=== PATIENT | female | born 1955 | race Caucasian/White ===

== ENCOUNTER 2018-09-08 11:13 | Observation (INO) | payer OTHER ==
[2018-09-08] MEDS ORDERED: GLUCAGON 1 MG/VIAL IM PRN (13:18)
[2018-09-08] MEDS ORDERED: D50W 25 GM/50 ML SYRINGE IV PRN (13:18)
[2018-09-08 13:27] VITALS: BMI 35.6
[2018-09-08] MEDS ORDERED: ENOXAPARIN 30 MG/0.3 ML SQ ONE (14:00)
[2018-09-08] MEDS ORDERED: FUROSEMIDE 40 MG/4 ML VIAL IV ONE (14:00)
[2018-09-08 14:10] LABS: Absolute Lymphocytes (CBC) 2.7 K/uL (0.7-4.9); Absolute Monocytes 0.9 K/uL (0.1-1.3); Absolute Neutrophil 6.9 K/uL (1.8-8.0); Basophils % 0.3 % (0-1.3); Eosinophils % 2.2 % (0-4.4); Hematocrit 38.9 % (36.0-45.0); Lymphocytes % 25.2 % (15.3-44.8); MPV 10.7 fL (7.6-11.3); Monocytes % 8.6 % (3.3-12.3); RBC Red Blood Cell Count 5.02 M/uL (3.86-4.86)
[2018-09-08 14:12] LABS: Urine Appearance CLEAR; Urine Bilirubin NEGATIVE (NEG); Urine Blood NEGATIVE (NEG); Urine Color YELLOW; Urine Glucose NEGATIVE (NEG); Urine Protein NEGATIVE (NEG); Urine Specific Gravity <=1.005 (1.005-1.030); Urine Urobilinogen 0.2 mg/dL (0.2-1.0); Urine pH 7.5 (5.0-7.0)
[2018-09-08 14:17] LABS: ALT/SGPT 24 U/L (12-78); AST/SGOT 17 U/L (15-37); Albumin 3.6 g/dL (3.4-5.0); Alkaline Phosphatase 88 U/L (45-117); BUN Blood Urea Nitrogen 10 mg/dL (7-18); Bicarbonate 29 mmol/L (21-32); Bilirubin Total 0.4 mg/dL (0.2-1.0); Glucose Level 82 mg/dL (74-106); NT PRO-BNP 296 pg/mL (<125); Potassium 3.7 mmol/L (3.5-5.1); Protein, Total 7.9 g/dL (6.4-8.2); Sodium Level 141 mmol/L (136-145); Troponin I < 0.02 ng/mL (0.0-0.045)
--- NOTE | 2018-09-08 14:29 | RAD REPORT ---
EXAM DESCRIPTION: Rito Single View09/08/2018 2:23 pm CLINICAL HISTORY: Shortness of breath COMPARISON: 2014 FINDINGS: The lungs appear clear of acute infiltrate. The heart is normal size IMPRESSION: No acute abnormalities displayed
[2018-09-08 14:50] LABS: Urine Microscopic Reflex NO UMIC
--- NOTE | 2018-09-08 14:54 | RAD REPORT ---
EXAM DESCRIPTION: USExtrem Venous W Compress Bil09/08/2018 2:47 pm CLINICAL HISTORY: Bilateral leg swelling COMPARISON: none FINDINGS: The common femoral, superficial femoral, popliteal and posterior tibial veins bilaterally are compressible and demonstrate augmentation. Doppler demonstrates good flow. IMPRESSION: No evidence of deep venous thrombosis involving either lower extremity.
--- NOTE | 2018-09-08 15:25 | ECHO ---
HEIGHT: 5 ft 6 in WEIGHT: 220 lb 8 oz DATE OF STUDY: 09/08/[address]: Mikel Ro MD 2-DIMENSIONAL: YES M.MODE: YES DOPPLER: YES COLOR FLOW: YES TDS: PARASTERNALS PORTABLE: DEFINITY: BUBBLE STUDY: DIAGNOSIS: CONGESTIVE HEART FAILURE. CARDIAC HISTORY: CATHERIZATION: NO SURGERY: NO PROSTHETIC VALVE: NO PACEMAKER: NO MEASUREMENTS (cm) DIASTOLIC (NORMALS) SYSTOLIC (NORMALS) IVSd 1.1 (0.6-1.2) LVIDs 2.8 (2.0-3.5) LVEF 59% LVIDd 4.1 (3.5-5.7) %FS 31% LVPWd 1.2 (0.6-1.2) Ao Diam 2.9 (2.0-3.7) 2 DIMENSIONAL ASSESSMENT: RIGHT ATRIUM: NORMAL LEFT ATRIUM: NORMAL RIGHT VENTRICLE: NORMAL LEFT VENTRICLE: NORMAL TRICUSPID VALVE: NORMAL MITRAL VALVE: NORMAL PULMONIC VALVE: NORMAL AORTIC VALVE: NORMAL PERICARDIAL EFFUSION: NONE AORTIC ROOT: NORMAL LEFT VENTRICULAR WALL MOTION: NORMAL DOPPLER/COLOR FLOW: MILD AORTIC REGURGITATION. IMPAIRED LEFT VENTRICULAR RELAXATION. COMMENTS: NORMAL TWO DIMENSIONAL ECHOCARDIOGRAM. MILD AORTIC REGURGITATION. IMPAIRED LEFT VENTRICULAR RELAXATION. TECHNOLOGIST: DU SHIRLEY
[2018-09-08] MEDS: INSULIN -REGULAR HUMAN 50 UNIT/0.5 ML ML SQ SCH ×2 (16:48→21:00)
[2018-09-08] MEDS: METFORMIN ER 500 MG TAB PO SCH (17:44)
--- NOTE | 2018-09-08 18:25 | EKG ---
Test Date: 2018-09-08 Test Time: 14:55:15 Behavioral Interventionist: YO MEASUREMENT RESULTS: Intervals: Rate: 80 WY: 168 QRSD: 92 QT: 390 QTc: 449 Tyro: P: 72 WY: 168 QRS: 55 T: 77 INTERPRETIVE STATEMENTS: Normal sinus rhythm Anteroseptal infarct, age undetermined Abnormal ECG No previous ECG available for comparison Electronically Signed On 09-08-18 18:24:52 REPORTING SPECIALIST by Jonnie Hernandez
[2018-09-08] MEDS ORDERED: ATORVASTATIN 20 MG TAB PO SCH (21:00)
[2018-09-08] MEDS ORDERED: HOME MED 1 EA UNK (Simvastatin [Simvastatin] 40 MG) PO SCH (21:00)
[2018-09-08] MEDS: CARVEDILOL 12.5 MG TAB PO SCH (21:19)
[2018-09-08] MEDS: HYDRALAZINE HCL 20 MG/ML VIAL IV PRN (21:20)
[2018-09-09] MEDS: HYDRALAZINE HCL 20 MG/ML VIAL IV PRN (04:18)
[2018-09-09 04:39] VITALS: O2SAT 93
[2018-09-09] MEDS ORDERED: ACETAMINOPHEN 500 MG TAB PO PRN (05:09)
[2018-09-09] MEDS ORDERED: INSULIN GLARGINE 100 UNITS/ML SQ SCH (06:00)
[2018-09-09] MEDS ORDERED: INSULIN GLARGINE HUM REC ANLOG 25 UNIT SQ SCH (06:00)
[2018-09-09] MEDS: INSULIN -REGULAR HUMAN 50 UNIT/0.5 ML ML SQ SCH (07:30)
[2018-09-09] MEDS ORDERED: POTASSIUM CL SA 10 MEQ TAB PO ONE (08:41)
[2018-09-09] MEDS ORDERED: FUROSEMIDE 20 MG/ 2ML VIAL IV ONE (08:41)
[2018-09-09] MEDS ORDERED: LISINOPRIL 10 MG TAB PO SCH (09:00)
[2018-09-09] MEDS ORDERED: CLOPIDOGREL 75 MG TABLET PO SCH (09:00)
[2018-09-09] MEDS: METFORMIN ER 500 MG TAB PO SCH (09:15)
[2018-09-09] MEDS: CARVEDILOL 12.5 MG TAB PO SCH (09:15)
[2018-09-09 09:17] VITALS: BP 165/79
[2018-09-09 09:49] VITALS: TEMP 97.1
--- NOTE | 2018-09-09 11:26 | HP ---
Date of Admission: 09/08/2018 Chief Complaint: Swelling of both legs. History Of Present Illness: A 63-year-old female who is known to have history of coronary artery dis ease and coronary angioplasty, was brought to the office because of swelling of the feet and fatigue. The patient clinically was diagnosed to have congestive heart failure. [facility]. The patient denied any fever, chills, or rigors. However, she was having intermittent dyspne a with exertion. Past Medical History: Positive for coronary artery disease, coronary angioplasty. The patient does not have any history of fever, chills, rigors. Other medical history includes history of type 2 diab etes, hypertension. Past Surgical History: Extensive and includes history of surgery of the neck, ankle, hernia, gallbla dder, cataract, and dental abscess. The patient had coronary angioplasty in the past. Family History: Noncontributory. Personal History: Nonsmoker. Allergies: DEMEROL. Home Medicines: Please refer to the chart. Review of Systems: No history of fever, chills, rigors. Physical Examination: General: Revealed a 63-year-old female, not in acute distress. Vital Signs: Normal. Afebrile. HEENT: Negative. Neck: Supple. JVD negative. Chest: Occasional wheezes. Heart: Regular. Abdomen: Soft. Extremities: Bilateral edema up to the knees present. Pedal pulses are difficult to feel. Laboratory Data: White count normal. Chem profile showed elevated BNP of 296. Troponin normal. Ra ndom blood sugar of 78. BUN and creatinine normal. Chest x-ray negative. Echocardiogram, no systol ic dysfunction. Assessment: 1.Presumed congestive heart failure. 2.Known coronary artery disease. 3.Deep vein thrombosis ruled out. 4.Hypertension. 5.Type 2 diabetes. Plan: Today the patient is feeling much better. She will receive additional dose of Lasix and she w ill be discharged and she will be followed up in the office. In view of her dyspnea with exertion, s he may need coronary evaluation. MISSY/TREVOR Voice ID: [id number]
== END 2018-09-09 11:47 | disposition home or self-care (01) ==
LOC: 2ND 12:28
PROVIDERS: ADMIT Internal Medicine; ATTEND Internal Medicine
DX: I11.0 Hypertensive heart disease with heart failure (principal); I50.9 Heart failure, unspecified; I25.10 Atherosclerotic heart disease of native coronary artery without angina pectoris; E11.9 Type 2 diabetes mellitus without complications; Z98.61 Coronary angioplasty status
CPT/HCPCS: 36415; 71045; 80053; 81003; 82962; 83880; 84484; 85025; 93005; 93306; 93970; G0378; J0360; J1650; J1940

== ENCOUNTER 2018-10-25 07:57 | Day surgery (SDC) | payer OTHER ==
[2018-10-24 15:55] LABS: Protime INR 1.03
[2018-10-24 16:04] LABS: Potassium 3.7 mmol/L (3.5-5.1)
[2018-10-24 16:11] LABS: Absolute Lymphocytes (CBC) 2.9 K/uL (0.7-4.9); Absolute Monocytes 0.7 K/uL (0.1-1.3); Absolute Neutrophil 5.2 K/uL (1.8-8.0); Basophils % 0.5 % (0-1.3); Eosinophils % 2.8 % (0-4.4); Hematocrit 37.8 % (36.0-45.0); MPV 10.6 fL (7.6-11.3); Monocytes % 8.1 % (3.3-12.3); RBC Red Blood Cell Count 4.94 M/uL (3.86-4.86)
[2018-10-25] MEDS ORDERED: NA CHLORIDE 0.9% 500 ML ONE (08:40)
[2018-10-25] MEDS ORDERED: ONDANSETRON 4 MG/2 ML VIAL ONE (11:28)
[2018-10-25] MEDS ORDERED: NITROGLYCERIN 100 MCG/ML SYR (for cath lab use only) IV ONE (11:28)
[2018-10-25] MEDS ORDERED: HEPARIN 5000 UNIT/ML 1 ML VIAL ONE (11:28)
[2018-10-25] MEDS ORDERED: MIDAZOLAM HCL 2 MG/2 ML INJ ONE (11:28)
[2018-10-25] MEDS ORDERED: HEPA 1000U/500MLS 2,000 UNIT/1,000 ML BAG IV ONE (11:28)
[2018-10-25] MEDS ORDERED: NICARDIPINE HCL 25 MG/10 ML IV ONE (11:28)
[2018-10-25] MEDS ORDERED: FENTANYL CITR 100 MCG/2 ML ONE (11:28)
[2018-10-25] MEDS ORDERED: ATROPINE SULF 1 MG/10 ML SYR IV ONE (11:28)
[2018-10-25] MEDS ORDERED: NA CHLORIDE 0.9% 0 ML ONE (11:29)
[2018-10-25] MEDS ORDERED: HYDRALAZINE HCL 20 MG/ML VIAL ONE (12:04)
[2018-10-25 14:17] VITALS: O2SAT 94
[2018-10-25 14:54] VITALS: BP 122/51; TEMP 99
--- NOTE | 2018-10-25 22:49 | OP ---
Surgeon: Jonnie Hernandez MD Procedures: Left heart catheterization with coronary left ventricular angiography. Procedure Findings: The patient has an LAD stent that is widely patent. It is in the proximal LAD. The stent crosses the first diagonal. The first diagonal has a 70% stenosis at its origin. It is a small vessel and would not be amenable to intervention. Just distal to the stent is a 40% to 50% st enosis that is smooth. There is normal flow all the way to the LAD. She has a normal right coronary artery, normal circumflex artery. Her left main is short. The ejection fraction is normal, but the re is apical hypokinesis, and the plan is to continue medical therapy and attempt to have her blood p ressure get under better control by adding amlodipine to her present regimen. Procedure In Detail: The patient had an abnormal stress test, history of stents, and multiple risk f actors. She was brought to the cardiac catheterization lab in a fasting state, sedated with Versed a nd fentanyl, prepared and draped in the usual sterile fashion. We used the right radial artery. We anesthetized the tissues around the right radial artery with 1% lidocaine. We entered the artery wit h a 21-gauge needle, cannulated the artery with a 0.715-gukz-bwpoarng guidewire. We then used this t o place a sheath in the right radial artery, a Terumo 6-Bengali radial sheath. As soon as the sheath was in place, it was flushed; and a radial cocktail was given consisting of nicardipine, heparin, and nitroglycerin. We guided a TIG catheter into the ascending aorta using fluoroscopy and a Route4Me Gli dewire with a short-radius J-tip. We used the same catheter to angiogram right and left coronary art eries and the left ventricle. At the end of the procedure, the catheter was straightened out with th e J-wire withdrawn; and the sheath was flushed, removed, and the arteriotomy was closed using a SUNIL [place] nd. Estimated Blood Loss: 5 cc. Inker Machine: Kota Hernández. Complications: None. MARILYNN/TREVOR Voice ID: [id number] Report ID: [id number]
== END 2018-10-25 16:20 | disposition home health service (06) ==
LOC: CCL 07:57
PROVIDERS: ATTEND Internal Medicine
PROC: 4A023N7 Measurement of Cardiac Sampling and Pressure, Left Heart, Percutaneous Approach (ICD-10-PCS; principal; 2018-10-25)
PROC: B201YZZ Plain Radiography of Multiple Coronary Arteries using Other Contrast (ICD-10-PCS; 2018-10-25)
PROC: B205YZZ Plain Radiography of Left Heart using Other Contrast (ICD-10-PCS; 2018-10-25)
DX: R94.39 Abnormal result of other cardiovascular function study (principal); I25.10 Atherosclerotic heart disease of native coronary artery without angina pectoris; I11.0 Hypertensive heart disease with heart failure; I50.32 Chronic diastolic (congestive) heart failure; E78.2 Mixed hyperlipidemia; Z95.5 Presence of coronary angioplasty implant and graft; Z88.6 Allergy status to analgesic agent; Z91.040 Latex allergy status; Z87.891 Personal history of nicotine dependence
CPT/HCPCS: 36415; 80048; 82962; 85025; 85610; 85730; 93458; C1893; J0360; J0583; J1644; J2250; J2405; J3010

== ENCOUNTER 2021-05-10 05:44 | Inpatient (IN) | payer BC, OTHER ==
--- OUTSIDE RECORDS SUMMARY | 2021-05-10 05:46 | XMS REPORT | Continuity of Care Document ---
:1955 Author Organization [facility] t Address [address] [place] [address] Dr. Bennett [address] [place] [id number] Care Team Providers Name Role Phone Unavailable Unavailable Unavailable Problems This patient has no known problems. Allergies, Adverse Reactions, Alerts This patient has no known allergies or adverse reactions. Medications This patient has no known medications. Procedures This patient has no known procedures. Results This patient has no known results.
[2021-05-10 07:08] LABS: Absolute Lymphocytes (CBC) 1.6 K/uL (0.7-4.9); Basophils % 0.8 % (0-1.3); Hematocrit 38.3 % (36.0-45.0); Lymphocytes % 16.4 % (15.3-44.8); RBC Red Blood Cell Count 4.74 M/uL (3.86-4.86)
[2021-05-10 07:09] LABS: Protime INR 1.01
[2021-05-10] MEDS ORDERED: ASPIRIN EC 81 MG TAB PO ONE (07:14)
[2021-05-10 07:17] LABS: ALT/SGPT 18 U/L (12-78); AST/SGOT 20 U/L (15-37); Albumin 3.5 g/dL (3.4-5.0); Alkaline Phosphatase 78 U/L (45-117); BUN Blood Urea Nitrogen 11 mg/dL (7-18); Bicarbonate 29 mmol/L (21-32); Bilirubin Direct 0.1 mg/dL (0-0.2); Bilirubin Total 0.5 mg/dL (0.2-1.0); Glucose Level 223 mg/dL (74-106); NT PRO-BNP 449 pg/mL (<125); Protein, Total 7.5 g/dL (6.4-8.2); Sodium Level 139 mmol/L (136-145); Troponin (Emerg Dept Use Only) < 0.02 ng/mL (0.0-0.045)
--- NOTE | 2021-05-10 08:49 | RAD REPORT ---
EXAM DESCRIPTION: RAD - Chest Single View - 05/10/2021 7:41 am CLINICAL HISTORY: CHEST PAIN Chest pain. COMPARISON: Chest Single View dated 09/08/2018; CHEST PA AND LAT 2 VIEW dated 09/20/2014 FINDINGS: Portable technique limits examination quality. Mild interstitial pulmonary edema suspected. The heart is normal in size. No displaced fractures.
[2021-05-10] MEDS ORDERED: FUROSEMIDE 40 MG/4 ML VIAL ONE (10:58)
--- NOTE | 2021-05-10 11:15 | ER ---
Nurse's Notes [facility] Name: Shantal Carrasquillo Age: 66 yrs Sex: Female : 1955 Arrival Date: 05/10/2021 Time: 05:46 Bed 7 Private MD: Diagnosis: Dyspnea-on exertion;Chest pain, unspecified Presentation: 05/10 05:59 Chief complaint: Patient states: difficulty breathing off and on for a week, is em scheduled for a cath. on Apr, with Dr. Wood, was told to come to the ED if symptoms get worse, chest tightness 3/10, also reports nausea. Coronavirus screen: Vaccine status: Patient reports receiving the 2nd dose of the covid vaccine. Ebola Screen: Patient negative for fever greater than or equal to 101.5 degrees Fahrenheit, and additional compatible Ebola Virus Disease symptoms Patient denies exposure to infectious person. Patient denies travel to an Ebola-affected area in the 21 days before illness onset. No symptoms or risks identified at this time. Initial Sepsis Screen: Does the patient meet any 2 criteria? No. Patient's initial sepsis screen is negative. Does the patient have a suspected source of infection? No. Patient's initial sepsis screen is negative. Risk Assessment: Do you want to hurt yourself or someone else? Patient reports no desire to harm self or others. Onset of symptoms was May 10, 2021. 05:59 Method Of Arrival: Wheelchair em 05:59 Acuity: PAYAM 3 em 06:36 Note Pt c/o SOB on exertion, Report having stent placement scheduled "later this bc5 month". Denies fever, CP at this time. A\\T\\O x 3, RR is even and unlabored, speaking in clear and complete sentences at this time. Triage Assessment: 06:54 General: Appears in no apparent distress. comfortable. General: Behavior is calm, bc5 cooperative. Pain: Complains of pain in chest. Respiratory: Reports shortness of breath on exertion Onset: The symptoms/episode began/occurred gradually, the patient has mild shortness of breath. Historical: - Allergies: 06:05 Morphine; em 06:05 Latex, Natural Rubber; em 06:05 Demerol; em - PMHx: 06:05 Cataract; em - PSHx: 06:05 Appendectomy; section; Coronary Angioplasty; Tonsillectomy; Cholecystectomy; em heart stents; R ankle; - Immunization history:: Adult Immunizations up to date, Client reports receiving the 2nd dose of the Covid vaccine. - Social history:: Smoking status: Patient denies any tobacco usage or history of. Screenin:00 Abuse screen: Denies threats or abuse. Denies injuries from another. Nutritional jl7 screening: No deficits noted. Tuberculosis screening: No symptoms or risk factors identified. Fall Risk IV access (20 points). Total Manrique Fall Scale indicates No Risk (0-24 pts). Assessment: 12:20 Reassessment: Patient appears in no apparent distress at this time. No changes from tw2 previously documented assessment. Patient and/or family updated on plan of care and expected duration. Pain level reassessed. Patient is alert, oriented x 3, equal unlabored respirations, skin warm/dry/pink. 12:25 Reassessment: Dr. Hudson at bedside at this time. tw2 13:30 Reassessment: Patient appears in no apparent distress at this time. No changes from tw2 previously documented assessment. Patient and/or family updated on plan of care and expected duration. Pain level reassessed. Patient is alert, oriented x 3, equal unlabored respirations, skin warm/dry/pink. pt given lunch tray at this time. 16:28 Reassessment: Patient appears in no apparent distress at this time. No changes from tw2 previously documented assessment. Patient and/or family updated on plan of care and expected duration. Pain level reassessed. Patient is alert, oriented x 3, equal unlabored respirations, skin warm/dry/pink. Vital Signs: 05:59 BP 184 / 81; Pulse 78; Resp 18; Temp 97.9; Pulse Ox 98% on R/A; Weight 94.8 kg; Height em 5 ft. 6 in. (167.64 cm); Pain 3/10; 10:42 BP 174 / 66; Pulse 75; Resp 15; Pulse Ox 98% on R/A; jl7 12:25 BP 166 / 89; Pulse 78; Resp 16; Pulse Ox 95% on R/A; tw2 13:30 BP 162 / 70; Pulse 92; Resp 17; Pulse Ox 97% on R/A; tw2 05:59 Body Mass Index 33.73 (94.80 kg, 167.64 cm) em ED Course: 05:46 Patient arrived in ED. wm 06:05 Triage completed. em 06:05 Arm band placed on. em 06:22 Marcos Garcia NP is PHCP. pm1 06:22 Luigi Jim MD is Attending Physician. pm1 06:52 Basic Metabolic Panel Sent. bc5 06:52 CBC with Diff Sent. bc5 06:52 LFT's Sent. bc5 06:52 Magnesium Sent. bc5 06:52 NT PRO-BNP Sent. bc5 06:52 PT-INR Sent. bc5 06:53 Troponin (emerg Dept Use Only) Sent. bc5 06:54 Inserted saline lock: 20 gauge in left antecubital area, using aseptic technique. bc5 07:00 Patient has correct armband on for positive identification. Placed in gown. Bed in low jl7 position. Call light in reach. Side rails up X 1. quality assurance monitor final on. Pulse ox on. NIBP on. Warm blanket given. 07:00 Initial lab(s) drawn, by ED staff, sent to lab. EKG done, by ED staff, reviewed by [facility] Marcos Garcia NP. 07:10 Gama Serrano, RN is Primary Nurse. ch5 07:41 XRAY Chest (1 view) In Process Unspecified. EDMS 08:29 Attending Physician role handed off by Luigi Jim MD rn 08:29 Yossi Moreno MD is Attending Physician. rn 11:14 Gerard Castillo MD is Hospitalizing Provider. pm1 15:43 Comprehensive Metabolic Panel Sent. ch5 15:43 Comprehensive Metabolic Panel Sent. ch5 15:43 Lipid Profile Sent. ch5 15:44 Thyroid Stimulating Hormone Sent. ch5 15:44 Comprehensive Metabolic Panel Sent. ch5 15:44 Comprehensive Metabolic Panel Sent. ch5 15:44 CBC with Automated Diff Sent. ch5 15:44 CBC with Automated Diff Sent. ch5 15:44 CBC with Automated Diff Sent. ch5 15:44 CBC with Automated Diff Sent. ch5 15:44 LAB Add On Sent. ch5 16:28 No provider procedures requiring assistance completed. Patient admitted, IV remains in tw2 place. Administered Medications: 06:55 Drug: Aspirin Chewable Tablet 324 mg Route: PO; wg 10:41 Drug: Lasix (furosemide) 40 mg Route: IVP; Site: right antecubital; jl7 Outcome: 11:14 Decision to Hospitalize by Provider. pm1 16:28 Admitted to Med/surg accompanied by tech, via wheelchair, with chart. tw2 16:28 Condition: stable 16:28 Instructed on the need for admit. 16:28 Patient left the ED. tw2 Signatures: Dispatcher [employer] EDNick Hwang, RN RN Yossi Meyer MD MD rn Marinas, Patrick, STANISLAW OAK TANNER pm1 Saskia Ellsworth RN RN tw2 Olga Denise RN RN jl7 Bethany Nugent Christopher, RN RN ch5 Ralph Schaffer RN Rena Lincoln RN RN bc5
--- NOTE | 2021-05-10 11:15 | EDPHYS ---
Physician Documentation [facility] Name: Shantal Carrasquillo Age: 66 yrs Sex: Female : 1955 Arrival Date: 05/10/2021 Time: 05:46 Bed 7 Private MD: ED Physician Yossi Moreno HPI: 05/10 06:37 This 66 yrs old Female presents to ER via Wheelchair with complaints of pm1 Breathing Difficulty. 06:37 The patient has shortness of breath with light activity. Onset: The symptoms/episode pm1 began/occurred 3 day(s) ago. The patient's shortness of breath is aggravated by nothing, is alleviated by nothing. 06:37 Associated signs and symptoms: Pertinent positives: chest pain, nausea, Pertinent pm1 negatives: non-productive cough, productive cough, fever, vomiting, Diarrhea. Severity of symptoms: in the emergency department the symptoms are worse. The patient has not experienced similar symptoms in the past. The patient has been recently seen by a physician: with similar presenting complaints, Patient recently seen by Dr. Deng her talent director for the same complaint and the plan for management of her symptom is cardiac cath scheduled on May 21. However she was instructed if her symptoms worsen to report to the ER for further evaluation and treatment. Historical: - Allergies: 06:05 Morphine; em 06:05 Latex, Natural Rubber; em 06:05 Demerol; em - PMHx: 06:05 Cataract; em - PSHx: 06:05 Appendectomy; section; Coronary Angioplasty; Tonsillectomy; Cholecystectomy; em heart stents; R ankle; - Immunization history:: Adult Immunizations up to date, Client reports receiving the 2nd dose of the Covid vaccine. - Social history:: Smoking status: Patient denies any tobacco usage or history of. ROS: 06:37 Constitutional: Negative for fever, chills, and weight loss. pm1 06:37 Abdomen/GI: Negative for abdominal pain, nausea, vomiting, diarrhea, and constipation, Back: Negative for injury and pain, MS/Extremity: Negative for injury and deformity, Skin: Negative for injury, rash, and discoloration, Neuro: Negative for headache, weakness, numbness, tingling, and seizure. 06:37 Cardiovascular: Positive for chest pain, edema, Negative for edema, palpitations. 06:37 Respiratory: Positive for shortness of breath, Negative for cough. 06:37 All other systems are negative. Exam: 06:37 Constitutional: This is a well developed, well nourished patient who is awake, alert, pm1 and in no acute distress. Head/Face: Normocephalic, atraumatic. 06:37 Back: No spinal tenderness. No costovertebral tenderness. Full range of motion. Skin: Warm, dry with normal turgor. Normal color with no rashes, no lesions, and no evidence of cellulitis. MS/ Extremity: Pulses equal, no cyanosis. Neurovascular intact. Full, normal range of motion. 06:37 Eyes: Exam is negative for acute changes, Periorbital structures: appear normal, Extraocular movements: intact throughout, Sclera: no acute changes, icterus, is not appreciated. 06:37 ENT: Mouth: Lips: normal, moist, Oral mucosa: normal, pink and intact, moist. 06:37 Cardiovascular: Rate: normal, Rhythm: regular, Pulses: no pulse deficits are appreciated, Edema: pedal edema, 2+. 06:37 Respiratory: Exam negative for acute changes, the patient does not display signs of respiratory distress, Respirations: normal, Breath sounds: are clear throughout. 06:37 Abdomen/GI: Inspection: abdomen appears normal, Palpation: abdomen is soft and non-tender, in all quadrants. 06:37 Neuro: Exam negative for acute changes, Orientation: is normal, Mentation: is normal, Motor: moves all fours. Vital Signs: 05:59 BP 184 / 81; Pulse 78; Resp 18; Temp 97.9; Pulse Ox 98% on R/A; Weight 94.8 kg; Height em 5 ft. 6 in. (167.64 cm); Pain 3/10; 10:42 BP 174 / 66; Pulse 75; Resp 15; Pulse Ox 98% on R/A; jl7 12:25 BP 166 / 89; Pulse 78; Resp 16; Pulse Ox 95% on R/A; tw2 13:30 BP 162 / 70; Pulse 92; Resp 17; Pulse Ox 97% on R/A; tw2 05:59 Body Mass Index 33.73 (94.80 kg, 167.64 cm) em MDM: 06:38 Patient medically screened. pm1 10:15 Data reviewed: vital signs. Data interpreted: Pulse oximetry: on room air is 98 %. pm1 Interpretation: normal. 11:11 Counseling: I had a detailed discussion with the patient and/or guardian regarding: the pm1 historical points, exam findings, and any diagnostic results supporting the discharge/admit diagnosis, lab results, radiology results, the need for further work-up and treatment in the hospital, to return to the emergency department if symptoms worsen or persist or if there are any questions or concerns that arise at home. 05/10 06:24 Order name: Basic Metabolic Panel; Complete Time: 07:19 pm05/10 06:24 Order name: CBC with Diff; Complete Time: 07:14 pm05/10 06:24 Order name: LFT's; Complete Time: 07:19 pm05/10 06:24 Order name: Magnesium; Complete Time: 07:19 pm05/10 06:24 Order name: NT PRO-BNP; Complete Time: 07:19 pm05/10 06:24 Order name: PT-INR; Complete Time: 07:14 pm05/10 06:24 Order name: Troponin (emerg Dept Use Only); Complete Time: 07:19 pm1 05/10 12:58 Order name: Comprehensive Metabolic Panel [facility] 05/10 12:58 Order name: Comprehensive Metabolic Panel [facility] 05/10 12:58 Order name: Lipid Profile [facility] 05/10 12:58 Order name: Thyroid Stimulating Hormone [facility] 05/10 12:58 Order name: Comprehensive Metabolic Panel [facility] 05/10 12:58 Order name: Comprehensive Metabolic Panel [facility] 05/10 06:24 Order name: XRAY Chest (1 view); Complete Time: 08:57 pm1 05/10 06:24 Order name: EKG; Complete Time: 06:24 pm1 05/10 06:24 Order name: Cardiac monitoring; Complete Time: 06:34 pm05/10 06:24 Order name: EKG - Nurse/Tech; Complete Time: 06:34 pm05/10 06:24 Order name: IV Saline Lock; Complete Time: 06:53 pm1 05/10 12:05 Order name: Diet Ada 1800 Power; Complete Time: 12:05 tw2 05/10 12:59 Order name: CONS Physician Consult; Complete Time: 15:44 [facility] 05/10 12:59 Order name: Hemoglobin A1c; Complete Time: 15:46 EDMS 05/10 12:59 Order name: CBC with Automated Diff EDMS 05/10 12:59 Order name: CBC with Automated Diff EDMS 05/10 12:59 Order name: CBC with Automated Diff EDMS 05/10 12:59 Order name: CBC with Automated Diff EDMS 05/10 13:35 Order name: SARS-COV-2 RT PCR; Complete Time: 13:41 EDMS 05/10 14:05 Order name: LAB Add On eb 05/10 06:24 Order name: Labs collected and sent; Complete Time: 06:53 pm1 05/10 06:24 Order name: O2 Per Protocol; Complete Time: 06:35 pm1 05/10 06:24 Order name: O2 Sat Monitoring; Complete Time: 06:34 pm1 Administered Medications: 06:55 Drug: Aspirin Chewable Tablet 324 mg Route: PO; wg 10:41 Drug: Lasix (furosemide) 40 mg Route: IVP; Site: right antecubital; jl7 Disposition: 17:00 Co-signature as Attending Physician, Yossi Moreno MD. rn 17:00 I agree with the assessment and plan of care. Attestation: The patient's history, exam rn findings, diagnostics, and a summary of any interventions or procedures was reviewed in detail with Marcos Garcia BUSINESS OPERATIONS MANAGER. Disposition Summary: 05/10/21 11:14 Hospitalization Ordered Hospitalization Status: Observation pm1 Provider: Gerard Castillo pm1 Location: Telemetry/MedSurg (observation) pm1 Condition: Stable pm1 Problem: new pm1 Symptoms: have improved pm1 Bed/Room Type: Standard pm1 Room Assignment: 207(05/10/21 15:19) Diagnosis - Dyspnea - on exertion pm1 - Chest pain, unspecified pm1 Forms: - Medication Reconciliation Form pm1 - SBAR form pm1 Signatures: Dispatcher [employer] Willow Garland RN RN dw Munoz, Edgar, RN RN em Nieto, Roman, MD MD rn Marinas, Patrick, NP BUSINESS OPERATIONS MANAGER pm1 Olga Denise RN RN jl7 Gamba, Liam, RN wg Corrections: (The following items were deleted from the chart) 12:42 12:06 CORONAVIRUS+MR.LAB.BRZ ordered. EDMS EDMS 15:19 11:14 pm1 dw
--- NOTE | 2021-05-10 12:53 | P.HP ---
Certification for Inpatient Patient admitted to: Inpatient With expected LOS: >2 Midnights Patient will require the following post-hospital care: None Practitioner: I am a practitioner with admitting privileges, knowledge of patient current condition, hospital course, and medical plan of care. Services: Services provided to patient in accordance with Admission requirements found in Title 42 Section 412.3 of the Code of Federal Regulations Patient History Date of Service: 05/10/21 Primary Care Provider: Katelyn Reason for admission: unstable angina History of Present Illness: Patient of Dr. Zepeda and Dr. Crouch. She has a history of htn Dm2 and cad with a stent. The patient has been having increasing exercise intolerance and increasing sob. She works in [employer] and is no longer able to walk across the floor. She was having worsening of this. The patient was referred to Dr. Crouch and has recently had an outpatient workup. With echo and stress test. Unfortunately we do not have those records however Dr. 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 She was to have a cath on the of this month. However as her sob was getting worse she decided to come to the ER. Allergies latex Allergy (Verified 10/24/18 15:16) Rash meperidine HCl [From Demerol] Allergy (Verified 10/24/18 15:16) Hives/Rash Home Medications: Carvedilol [Coreg] 12.5 mg PO BID 09/08/18 Clopidogrel Bisulfate [Plavix] 75 mg PO DAILY 09/08/18 Glimepiride 4 mg PO DAILY 09/08/18 Insulin Glargine,Hum.rec.anlog [Basaglar Kwikpen U-100] 25 unit SQ [id number] 09/08/18 Metformin ER [Glucophage ER] 1,000 mg PO BID 09/08/18 Simvastatin 40 mg PO BEDTIME 09/08/18 lisinopriL [Lisinopril] 10 mg PO DAILY 09/08/18 - Past Medical/Surgical History Diabetic: Yes -: DM -: HTN -: stent placement -: rt ankle sx -: neck sx x2 -: hernia repair -: cholecystectomy -: bilat cataract sx -: perirectal abcess sx - Social History Alcohol use: No CD- Drugs: No Caffeine use: No Review of Systems 10-point ROS is otherwise unremarkable Respiratory: Shortness of Breath Cardiovascular: Chest Pain (tightness. ) Physical Examination - Physical Exam General: Alert, In no apparent distress HEENT: Atraumatic, PERRLA, Mucous membr. moist/pink, EOMI, Sclerae nonicteric Neck: Supple, 2+ carotid pulse no bruit, No LAD, Without JVD or thyroid abnormality Respiratory: Clear to auscultation bilaterally, Normal air movement Cardiovascular: Regular rate/rhythm, Normal S1 S2, Edema (1+) Gastrointestinal: Normal bowel sounds, No tenderness Musculoskeletal: No tenderness Integumentary: No rashes Neurological: Normal gait, Normal speech, Normal strength at 5/5 x4 extr, Normal tone, Normal affect Lymphatics: No axilla or inguinal lymphadenopathy - Studies Laboratory Data (last 24 hrs) 05/10/21 06:50: PT 11.6, INR 1.01 05/10/21 06:50: WBC 10.00, Hgb 12.6, Hct 38.3, Plt Count 181 05/10/21 06:50: Sodium 139, Potassium 4.0, BUN 11, Creatinine 0.59, Glucose 223 H, Magnesium 2.0, Total Bilirubin 0.5, AST 20, ALT 18, Alkaline Phosphatase 78 Assessment and Plan - Problems (Diagnosis) (1) CHF (congestive heart failure) Onset Date: 09/11/18 Current Visit: Yes Status: Acute Plan: will admit the patient to the hospital. Consult to Dr. Crouch. Will give her a small amount of lasix. She is fluid overloaded and has a very good creatine. She should be able to tolerate this. Qualifiers: Heart failure type: unspecified Heart failure chronicity: acute Qualified Code(s): I50.9 - Heart failure, unspecified (2) HTN (hypertension) Current Visit: Yes Status: Acute Plan: Will restart home medications. adjust as needed. Qualifiers: Hypertension type: primary hypertension Qualified Code(s): I10 - Essential (primary) hypertension (3) DM2 (diabetes mellitus, type 2) Current Visit: Yes Status: Acute Plan: restart home medications Will keep her on a insulin sliding scale. 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
[2021-05-10] MEDS ORDERED: ONDANSETRON 4 MG/2 ML VIAL IV PRN (12:55)
[2021-05-10] MEDS ORDERED: GLUCAGON 1 MG/VIAL IM PRN (12:56)
[2021-05-10] MEDS ORDERED: D50W 25 GM/50 ML SYRINGE IV PRN (12:56)
--- NOTE | 2021-05-10 16:02 | CON ---
Date of Consultation: 05/10/2021 Reason For Consultation: Heart failure. History Of Present Illness: A 66-year-old female with history of coronary artery disease, diabetes, hypertension, status post stent placement in the past, does come in with worsening shortness of breat h on exertion, minimal exertion is bringing up symptoms along with chest tightness. It is becoming m ore frequent. Denies having any nausea, vomiting, diarrhea, or diaphoresis. Past Medical History: Diabetes, hypertension, coronary artery disease. Medications: Refer reconciliation sheet for detailed list. Allergies: LATEX AND MEPERIDINE. Social History: Does not smoke or drink. Does not use any drugs. Family History: No mature coronary disease or cancer. Review of Systems: All systems reviewed were and they were negative except as mentioned in the HPI. Physical Examination: Vital Signs: Reviewed. Head and Neck: Pupils are equal, reactive to light. Intact eye movements. No JVD. No cervical lym phadenopathy. Neck is supple. Thyroid is not enlarged. Lungs: Clear to auscultation bilaterally. No rhonchi, rales, or crackles. No accessory muscle use. Heart: Regular rate and rhythm. No extra sounds. Abdomen: Soft, nontender. Bowel sounds positive. No organomegaly. No masses or hernia. No rigidi ty or rebound. Extremities: No edema, clubbing, or cyanosis. Intact pulses. Skin: No rashes. Neurologic: Alert, awake, and oriented x3. No acute focal deficits appreciated. Investigations: Troponin less than 0.02. BNP is 449, creatinine 0.59. The chest x-ray showed mild pulmonary edema. Assessment And Recommendation: Acute congestive heart failure with history of coronary artery diseas e and exertional chest pain and shortness of breath, likely unstable angina. Admit. Start her on Lo venox and baby aspirin. Also, IV Lasix 40 mg IV q.12 hours, and we will plan to do a coronary angiog stephie on her once her fluid status is balanced. SR/MODL Voice ID: [id number] Report ID: [id number]
[2021-05-10] MEDS: ENOXAPARIN 40 MG/0.4 ML SQ SCH (17:00)
[2021-05-10] MEDS: INSULIN -REGULAR HUMAN 50 UNIT/0.5 ML ML SQ SCH ×2 (17:21→21:04)
[2021-05-10] MEDS: METFORMIN ER 500 MG TAB PO SCH (17:21)
[2021-05-10] MEDS: FUROSEMIDE 40 MG/4 ML VIAL IV SCH (17:22)
[2021-05-10] MEDS ORDERED: HYDRALAZINE HCL 20 MG/ML VIAL IV PRN (20:19)
[2021-05-10] MEDS ORDERED: HOME MED 1 EA UNK (Simvastatin [Simvastatin] 40 MG Tablet) PO SCH (21:00)
[2021-05-10] MEDS: ATORVASTATIN 10 MG TAB PO SCH (21:03)
[2021-05-10] MEDS: carvediloL 12.5 MG TAB PO SCH (21:03)
[2021-05-11] MEDS ORDERED: HOME MED 1 EA UNK (Insulin Glargine,Hum.Rec.Anlog [Basaglar Kwikpen U-100] 100 UNIT/ML Ins SQ SCH (06:00)
[2021-05-11] MEDS: INSULIN GLARGINE 100 UNITS/ML SQ SCH ×2 (06:00→07:25)
[2021-05-11 06:29] LABS: Basophils % 0.4 % (0-1.3); Hematocrit 37.5 % (36.0-45.0); Lymphocytes % 19.2 % (15.3-44.8); MPV 10.3 fL (7.6-11.3); RBC Red Blood Cell Count 4.63 M/uL (3.86-4.86)
[2021-05-11 06:46] LABS: ALT/SGPT 17 U/L (12-78); AST/SGOT 14 U/L (15-37); Alkaline Phosphatase 70 U/L (45-117); BUN Blood Urea Nitrogen 15 mg/dL (7-18); Bicarbonate 29 mmol/L (21-32); Bilirubin Total 0.3 mg/dL (0.2-1.0); Glucose Level 128 mg/dL (74-106); Potassium 3.4 mmol/L (3.5-5.1); Sodium Level 139 mmol/L (136-145)
[2021-05-11 06:47] LABS: Albumin 3.2 g/dL (3.4-5.0); HDL Cholesterol 54 mg/dL (40-60); LDL Cholesterol, Calculated 83 (<130); Protein, Total 6.9 g/dL (6.4-8.2)
[2021-05-11] MEDS: INSULIN -REGULAR HUMAN 50 UNIT/0.5 ML ML SQ SCH ×4 (07:30→20:05)
[2021-05-11] MEDS: METFORMIN ER 500 MG TAB PO SCH ×2 (07:44→16:37)
[2021-05-11] MEDS: lisinopriL 10 MG TAB PO SCH (07:45)
[2021-05-11] MEDS: ASPIRIN EC 81 MG TAB PO SCH (07:45)
[2021-05-11] MEDS: carvediloL 12.5 MG TAB PO SCH ×2 (07:46→20:05)
[2021-05-11] MEDS: FUROSEMIDE 40 MG/4 ML VIAL IV SCH ×2 (07:46→16:38)
[2021-05-11] MEDS: CLOPIDOGREL 75 MG TABLET PO SCH (07:46)
[2021-05-11] MEDS ORDERED: FUROSEMIDE 40 MG/4 ML VIAL IV SCH (09:00)
[2021-05-11] MEDS ORDERED: FUROSEMIDE 20 MG TABLET PO SCH (09:00)
--- NOTE | 2021-05-11 13:25 | P.PN ---
Subjective Date of Service: 05/11/21 Primary Care Provider: Katelyn Chief Complaint: unstable angina Subjective: Improving Review of Systems 10-point ROS is otherwise unremarkable Physical Examination - Vital Signs Temperature: 98.4 F Blood Pressure: 137/56 Pulse: 82 Respirations: 15 Pulse Ox (%): 96 - Physical Exam General: Alert, In no apparent distress HEENT: Atraumatic, PERRLA, EOMI Neck: Supple, JVD not distended Respiratory: Clear to auscultation bilaterally, Normal air movement Cardiovascular: Regular rate/rhythm, Normal S1 S2 Gastrointestinal: Normal bowel sounds, No tenderness Musculoskeletal: No tenderness Integumentary: No rashes Neurological: Normal speech, Normal tone, Normal affect Lymphatics: No axilla or inguinal lymphadenopathy Assessment & Plan - Problems (Diagnosis) (1) CHF (congestive heart failure) Onset Date: 09/11/18 Current Visit: Yes Status: Acute Plan: will admit the patient to the hospital. Consult to Dr. Crouch. Will give her a small amount of lasix. She is fluid overloaded and has a very good creatine. She should be able to tolerate this. 05/11 Patient is improving with diuresis. Awaiting cardiac cath Qualifiers: Heart failure type: unspecified Heart failure chronicity: acute Qualified Code(s): I50.9 - Heart failure, unspecified (2) HTN (hypertension) Current Visit: Yes Status: Acute Plan: Will restart home medications. adjust as needed. Qualifiers: Hypertension type: primary hypertension Qualified Code(s): I10 - Essential (primary) hypertension (3) DM2 (diabetes mellitus, type 2) Current Visit: Yes Status: Acute Plan: restart home medications Will keep her on a insulin sliding scale. 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
[2021-05-11 13:38] VITALS: BMI 31.8
[2021-05-11] MEDS: ENOXAPARIN 40 MG/0.4 ML SQ SCH (16:37)
[2021-05-11] MEDS: ATORVASTATIN 10 MG TAB PO SCH (20:05)
[2021-05-12] MEDS: INSULIN GLARGINE 100 UNITS/ML SQ SCH (06:00)
[2021-05-12] MEDS: CLOPIDOGREL 75 MG TABLET PO SCH (07:02)
[2021-05-12] MEDS: lisinopriL 10 MG TAB PO SCH (07:02)
[2021-05-12] MEDS: ASPIRIN EC 81 MG TAB PO SCH (07:03)
[2021-05-12] MEDS: carvediloL 12.5 MG TAB PO SCH ×2 (07:03→20:09)
[2021-05-12 07:16] LABS: Absolute Lymphocytes (CBC) 2.4 K/uL (0.7-4.9); Basophils % 0.5 % (0-1.3); Lymphocytes % 24.4 % (15.3-44.8); MPV 10.1 fL (7.6-11.3); RBC Red Blood Cell Count 4.68 M/uL (3.86-4.86)
[2021-05-12 07:30] LABS: ALT/SGPT 17 U/L (12-78); AST/SGOT 20 U/L (15-37); Albumin 3.2 g/dL (3.4-5.0); Alkaline Phosphatase 67 U/L (45-117); BUN Blood Urea Nitrogen 21 mg/dL (7-18); Bicarbonate 30 mmol/L (21-32); Bilirubin Total 0.4 mg/dL (0.2-1.0); Glucose Level 135 mg/dL (74-106); Potassium 3.6 mmol/L (3.5-5.1); Protein, Total 7.1 g/dL (6.4-8.2); Sodium Level 137 mmol/L (136-145)
[2021-05-12] MEDS: INSULIN -REGULAR HUMAN 50 UNIT/0.5 ML ML SQ SCH ×4 (07:30→20:09)
[2021-05-12] MEDS: METFORMIN ER 500 MG TAB PO SCH ×2 (08:00→17:16)
[2021-05-12] MEDS: FUROSEMIDE 40 MG/4 ML VIAL IV SCH ×2 (09:23→17:16)
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
[2021-05-12] MEDS: ENOXAPARIN 40 MG/0.4 ML SQ SCH (17:00)
[2021-05-12] MEDS: ATORVASTATIN 10 MG TAB PO SCH (20:10)
[2021-05-13] MEDS: INSULIN GLARGINE 100 UNITS/ML SQ SCH (05:46)
[2021-05-13 06:19] LABS: Absolute Lymphocytes (CBC) 2.3 K/uL (0.7-4.9); Basophils % 1.1 % (0-1.3); Hematocrit 37.8 % (36.0-45.0); Lymphocytes % 24.4 % (15.3-44.8); MPV 9.8 fL (7.6-11.3); RBC Red Blood Cell Count 4.72 M/uL (3.86-4.86)
[2021-05-13 06:38] LABS: ALT/SGPT 15 U/L (12-78); AST/SGOT 13 U/L (15-37); Albumin 3.3 g/dL (3.4-5.0); Alkaline Phosphatase 69 U/L (45-117); BUN Blood Urea Nitrogen 22 mg/dL (7-18); Bicarbonate 31 mmol/L (21-32); Bilirubin Total 0.3 mg/dL (0.2-1.0); Glucose Level 99 mg/dL (74-106); Potassium 3.8 mmol/L (3.5-5.1); Protein, Total 7.3 g/dL (6.4-8.2); Sodium Level 139 mmol/L (136-145)
[2021-05-13] MEDS: INSULIN -REGULAR HUMAN 50 UNIT/0.5 ML ML SQ SCH ×2 (07:30→11:30)
[2021-05-13] MEDS ORDERED: NA CHLORIDE 0.9% 500 ML ONE (07:45)
[2021-05-13] MEDS ORDERED: FENTANYL CITR 100 MCG/2 ML ONE (07:49)
[2021-05-13] MEDS ORDERED: MIDAZOLAM HCL 2 MG/2 ML INJ ONE (07:49)
[2021-05-13] MEDS ORDERED: ATROPINE SULF 1 MG/10 ML SYR IV ONE (07:50)
[2021-05-13] MEDS ORDERED: NA CHLORIDE 0.9% 50 ML ONE (07:50)
[2021-05-13] MEDS: METFORMIN ER 500 MG TAB PO SCH (08:00)
[2021-05-13] MEDS ORDERED: NITROGLYCERIN/D5W 25 MG/250 ML BTL IV ONE (08:09)
[2021-05-13 08:13] LABS: Blood Morphology Comment NOT SEEN (NOT SEEN); Platelet Estimate ADEQ
[2021-05-13] MEDS ORDERED: PRASUGREL (EFFIENT) 10 MG TAB ONE (08:16)
[2021-05-13] MEDS ORDERED: ASPIRIN 325 MG TAB ONE (08:17)
[2021-05-13] MEDS: CLOPIDOGREL 75 MG TABLET PO SCH (09:00)
[2021-05-13] MEDS: ASPIRIN EC 81 MG TAB PO SCH (09:00)
[2021-05-13] MEDS: carvediloL 12.5 MG TAB PO SCH ×2 (09:00→10:41)
[2021-05-13] MEDS: FUROSEMIDE 40 MG/4 ML VIAL IV SCH ×2 (09:00→10:39)
--- NOTE | 2021-05-13 09:02 | OP ---
Date of Procedure: 05/13/2021 Surgeon: Dmitry Alford MD Visitor Service Assistant: Mr. Titus Blancas. Admitted by Dr. Castillo on 05/10/2021 with a non-STEMI, brought to the laboratory sampler today, 05/13/2021, unde rwent a left heart catheterization, selective coronary arteriogram, primary stent of the mid LAD afte r a proximal LAD stent that was done in the past. Indication: CAD and non-STEMI. Procedure In Detail: The patient was brought to the laboratory sampler, prepped and draped in routine sterile fashion. Given Versed for sedation. A 6-English sheath introduced in the right common femoral artery successfully. Angio-Seal was used to close the case. Angiography there was normal. Basilia cathet er left and right were used to do the diagnostic catheterization. Her RCA was normal and dominant. She had a dual left main system. Her circumflex was normal. She had a widely patent LAD stent in th e proximal LAD, 70% diagonal stenosis that comes out right at that stent. Distal to the stent, she h ad a 70% long mid LAD stenosis. We decided to intervene. We used XBLAD 3 without side hole as a silvio de, a [place] wire to cross the lesion successfully. A 2.5 x 16 Synergy stent was deployed just dista l to the whole stent and overlapped with it. We used a 14 atmosphere, 100 mcg of nitroglycerin intra coronary and an injection after that showed patent both stents with 0% residual. The patient tolerat ed the procedure well. There were no complications. Blood Loss: 5 mL. Anesthesia: Total conscious sedation was 60 minutes. Postoperative Diagnosis: Successful primary stent of the mid LAD, 70% diagonal stenosis. Plan: Plan is for medical therapy to be continued. She will be going home today in about 8 hours an d I will see her in the office in 2 weeks. SAVANNAH/TREVOR Voice ID: [id number] Report ID: [id number]
[2021-05-13] MEDS: lisinopriL 10 MG TAB PO SCH (10:40)
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
[2021-05-13 11:37] VITALS: BP 131/78; TEMP 96.6
[2021-05-13 14:31] VITALS: O2SAT 96
--- NOTE | 2021-05-15 15:37 | PN ---
Date of Progress Note: 05/11/2021 Subjective: Ms. Carrasquillo came in with unstable angina, history of coronary artery disease, slightly el evated troponin. We were planning to do a left heart catheterization on her today, however, schedule is full and we will postpone that till 05/12/2021. Meanwhile, the patient remains on Lovenox, beta perlita, aspirin, and statin. She is pain-free. She is in normal rhythm. No specific complaint. Miguel brower present regimen. Plan for catheterization and stent possibly on 05/12/2021. SAVANNAH/TREVOR Voice ID: [id number] Report ID: [id number]
== END 2021-05-13 14:28 | disposition home or self-care (01) | DRG 246 ==
LOC: ER 05:44 → ERHOLD 13:13 → 2ND 16:00
PROVIDERS: ADMIT Internal Medicine; ATTEND Internal Medicine
PROC: 027034Z Dilation of Coronary Artery, One Artery with Drug-eluting Intraluminal Device, Percutaneous Approach (ICD-10-PCS; principal; 2021-05-13)
PROC: B201YZZ Plain Radiography of Multiple Coronary Arteries using Other Contrast (ICD-10-PCS; 2021-05-13)
DX: I11.0 Hypertensive heart disease with heart failure (principal); I50.21 Acute systolic (congestive) heart failure; I25.110 Atherosclerotic heart disease of native coronary artery with unstable angina pectoris; E11.9 Type 2 diabetes mellitus without complications; Z91.040 Latex allergy status; Z95.5 Presence of coronary angioplasty implant and graft; Z20.822 Contact with and (suspected) exposure to COVID-19
CPT/HCPCS: 36415; 71045; 80048; 80053; 80061; 80076; 82947; 83036; 83735; 83880; 84443; 84484; 85025; 85347; 85610; 93005; 93454; 96374; 99285; C1725; C1760; C1877; C1893; C9600; J0583; J1650; J1815; J1940; J2250; J3010; J7040; U0003

== ENCOUNTER 2023-04-11 10:06 | Emergency (ER) | payer OTHER ==
--- OUTSIDE RECORDS SUMMARY | 2023-04-11 10:11 | XMS REPORT | Continuity of Care Document ---
:1955 Author Organization [facility] t Address [address] [place] [address] [place] [id number] Care Team Providers Name Role Phone NICOLAS MUNOZ Primary Care Physician Unavailable RADIOLOGY Attending Clinician Unavailable Radiology Attending Clinician Unavailable ROSELINE VELAZQUEZ Admitting Clinician Unavailable Payers Payer Name Policy Type Policy Number Effective Date Expiration Date Lorri [employer] [id number] 2021 MEDICARE HMO DSNP 00:00:00 Problems Condition Condition Condition Status Onset Resolution Last Treating Co mments Source Name Details Category Date Date Treatment Clinician Date Obesity Obesity Disease Active Univers (BMI (BMI 8-15 ity of 30-39.9) 30-39.9) 00:00: 00 Medical Branch Allergies, Adverse Reactions, Alerts Allergy Allergy Status Severity Reaction(s) Onset Inactive Treating Comm ents Source Name Type Date Date Clinician MORPHINE DRUG Active Unknown-Cmnt Un jude INGREDI 03-28 ity of 00:00: Medical Branch Morphine Propensi Active Unknown - Uni vers ty to See comments 03-28 ity of adverse 00:00: [place] reaction Medical s Branch MEPERIDI DRUG Active Rash Univers NE HCL INGREDI 05-19 ity of 00:00: Medical Branch LATEX DRUG Active Rash Univers INGREDI 05-19 ity of 00:00: Medical Branch Meperidi Propensi Active Rash Univer s ne Hcl ty to 05-19 ity of adverse 00:00: [place] reaction 00 Medical s Branch Latex Propensi Active Rash 2014-0 Univers ty to 9-21 ity of adverse 00:00: [place] reaction 00 Medical s Branch Social History Social Habit Start Date Stop Date Quantity Comments Source History of Current smoker University of tobacco use [facility] Alcohol intake 2022-04-28 2022-04-28 Current University of 00:00:00 00:00:00 non-drinker of [facility] alcohol (finding) [place] Tobacco use and 2018-03-28 2018-03-28 Smokeless tobacco Un iversity of exposure 00:00:00 00:00:00 non-user [facility] Sex Ass[birth year] At [birth year] Universit y of 00:00:00 00:00:00 [facility] Smoking Status Start Date Stop Date Source Ex-smoker 2018-03-28 00:00:00 2018-03-28 00:00:00 Universi ty of [facility] Medications Ordered Filled Start Stop Current Ordering Indication Dosage Frequency Signature Comments Components Source Medication Medication Date Date Medication? Clinician (SIG) Name Name naproxen Yes [id number] 550mg Take 1 Univers sodium 5-28 9100 tablet by ity of (ANAPROX 00:00: mouth 2 [place] DS) 550 mg 00 (two) Medical tablet times Branch daily with meals. INSULIN Yes 15U inject 15 Unive rs GLARGINE,HU 8-15 Units ity of M.REC.ANLOG 08:49: under the [place] (LANTUS [place]) 56 skin every Me dical morning. Branch lisinopril Yes 10mg Take 10 mg U nivers 10 mg 8-15 by mouth ity of tablet 08:49: daily. [place] [address] Medical Branch simvastatin Yes 40mg Take 40 mg Univers 40 mg 8-15 by mouth ity of tablet 08:49: at [place] [address] bedtime. Medical Branch clopidogrel Yes 75mg Take 75 mg Univers 75 mg 8-15 by mouth ity of tablet 08:49: daily. [place] [address] Medical Branch glimepiride 0 Yes 4mg Take 4 mg U nivers 4 mg tablet 8-15 by mouth ity of 08:49: daily with [place] [address] breakfast. Medical Branch metFORMIN 2017- Yes 1000mg Take 1,000 Univers 500 mg 8-15 mg by ity of tablet 08:49: mouth 2 [place] 56 (two) Medical times Branch daily with meals. carvedilol Yes 12.5mg Take 12.5 Univers 12.5 mg 8-15 mg by ity of tablet 08:49: mouth 2 [place] 56 (two) Medical times Branch daily with meals. insulin 2017- Yes 25U inject 25 Unive rs glargine,hu 8-15 Units ity of m.rec.anlog 08:49: under the [place] (BASAGLAR 56 skin. Medical KWIKPEN Branch U-100 INSULIN SC) omeprazole Yes 40mg Take 1 Cap U nivers (PRILOSEC) 05-20 by mouth ity o f 40 mg 00:00: daily. [place] capsule 00 Medical Branch ondansetron Yes 4mg Take 1 Tab Univers (ZOFRAN, 05-20 by mouth ity of HYDROCHLORI 00:00: every 8 [place] as [place],) 4 mg 00 (eight) Medical tablet hours as Branch needed for Nausea and Vomiting (N/V). traMADOL Yes 50mg Take 1 Tab Uni vers (ULTRAM) 50 05-20 by mouth ity of mg tablet 00:00: every 6 [place] 00 (six) Medical hours as Branch needed for Pain (scale 7-10). Procedures Procedure Date / Time Performing Clinician Source Performed NOTICE OF BILLING 2022-04-28 18:09:43 Doctor Xander, [facility] PRACTICES FOR MEDICARE [facility] PATIENTS [facility] PATIENT FINANCIAL 2022-04-28 18:09:21 Doctor Unamarleny, [facility] POLICY [facility] NO SHOW OR MISSED 2022-04-28 18:08:50 Doctor Xander, [facility] APPOINTMENT POLICY [facility] ACKNOWLEDGEMENT CONSENT/REFUSAL FOR 2022-04-28 18:08:25 Doctor Xander, [facility] DIAGNOSIS AND TREATMENT [facility] ASSIGNMENT OF BENEFITS 2022-04-28 18:08:08 Doctor Xander, [facility] Encounters Start End Encounter Admission Attending Care Care Encounter Source Date/Time Date/Time Type Type Clinicians Facility Department ID 2022-04-28 2022-04-28 Outpatient R RADIOLOGY [facility] [id number] [facility] [place] 13:12:38 23:59:00 ity of [facility] 2022-04-28 2022-04-28 [facility] Radiology [facility] [id number] [facility] [place] 13:12:38 23:59:00 Encounter [place] [id number] ity of [place] [id number] [facility] [id number] [place] [address] Branch Results This patient has no known results.
[2023-04-11] MEDS ORDERED: HALOPERIDOL LACT 5 MG/ML INJ ONE (10:52)
[2023-04-11] MEDS ORDERED: FAMOTIDINE 20 MG/2 ML VIAL IV ONE (10:52)
[2023-04-11] MEDS ORDERED: NA CHLORIDE 0.9% 50 ML ONE (10:52)
[2023-04-11] MEDS ORDERED: NA CHLORIDE 0.9% 1,000 ML ONE (10:52)
[2023-04-11 11:05] LABS: Absolute Lymphocytes (CBC) 2.2 K/uL (0.7-4.9); Hematocrit 38.6 % (36.0-45.0); Lymphocytes % 22.4 % (15.3-44.8); MCV 78.3 fL (80-100); Platelets 206 thou/uL (152-406); RBC Red Blood Cell Count 4.93 M/uL (3.86-4.86)
[2023-04-11 11:18] LABS: Specific Gravity 1.022 (1.005-1.030); Urine Bacteria None Seen /HPF (<20); Urine Bilirubin NEGATIVE (Negative); Urine Blood Negative (Negative); Urine Clarity Clear (Clear); Urine Color Light-Yellow (Yellow); Urine Glucose TRACE (Negative); Urine Mucus Slight /HPF (None Seen); Urine Protein TRACE (Negative); Urine RBC <5 /HPF (None Seen); Urine Urobilinogen Normal (Normal)
[2023-04-11 11:28] LABS: Albumin 3.4 g/dL (3.4-5.0); Bilirubin Total 0.4 mg/dL (0.2-1.0); Potassium 3.9 mEq/L (3.5-5.1); Protein, Total 7.5 g/dL (6.4-8.2)
--- NOTE | 2023-04-11 12:16 | RAD REPORT ---
EXAM DESCRIPTION: CT - Abdomen Pelvis W Contrast - 04/11/2023 11:51 am CLINICAL HISTORY: ABD PAIN COMPARISON: No comparisons TECHNIQUE: Thin cut axial CT imaging of the abdomen and pelvis was performed following intravenous a dministration of 100 mL Isovue 300. Multiplanar reformats were generated and reviewed. All CT scans are performed using dose optimization technique as appropriate and may include automated exposure control or mA/KV adjustment according to patient size. FINDINGS: No suspicious findings in the lung bases. The liver, spleen, and pancreas show no suspicious findings. Surgically removed gallbladder. Mildly p rominent common bile duct, likely due to postcholecystectomy status. Symmetric renal function is seen with no hydronephrosis or suspicious renal mass. Left lower pole flu id density 3 centimeter cyst. Mild fluid filling of proximal small bowel loops, nonspecific. No other dilated bowel loops or bowel wall thickening. Mild colonic diverticulosis. No free air, free fluid or inflammatory stranding. No h ernia, mass or bulky lymphadenopathy. The urinary bladder is without significant finding. No suspicious bony findings. IMPRESSION: Mild fluid filling of proximal small bowel loops, nonspecific. No other acute intra-abdo flaquita process. Incidental findings as above.
[2023-04-11] MEDS ORDERED: CIPROFLOXACIN 400mg IV 400 MG/200 ML BAG IV ONE (12:38)
--- NOTE | 2023-04-11 13:20 | EDPHYS ---
Physician Documentation [facility] Name: Shantal Carrasquillo Age: 68 yrs Sex: Female : 1955 Arrival Date: 04/11/2023 Time: 10:06 Bed 13 Private MD: ED Physician Alvaro Ramirez HPI: 04/11 10:33 This 68 yrs old Unknown Female presents to ER via Ambulatory with complaints of Low snw Back Pain - Left, Abdominal Pain - Left. 10:33 The patient presents with abdominal pain in the left lower quadrant. The symptoms snw radiate to left back. The symptoms are described as achy, steady. Severity of pain: At its worst the pain was moderate. The patient has not experienced similar symptoms in the past. It is unknown whether or not the patient has recently seen a physician. Historical: - Allergies: 10:32 Demerol; me1 10:32 Latex, Natural Rubber; me1 10:32 Morphine; me1 - Home Meds: 10:32 aspirin Oral [Active]; levothyroxine [Active]; metformin [Active]; lisinopril [Active]; me1 rybelsus [Active]; carvedilol [Active]; furosemide [Active]; atorvastatin [Active]; Toujeo SoloStar U-300 Insulin 300 unit/mL (1.5 mL) subcutaneous Insulin Pen [Active]; Anoro Ellipta 62.5-25 mcg/actuation inhalation Blister, With Inhalation Device [Active]; - PMHx: 10:32 Cataract; Diabetes mellitus; Hypertensive disorder; Hypothyroidism; me1 Hypercholesterolemia; - PSHx: 10:32 Appendectomy; section; Cholecystectomy; Coronary Angioplasty; Heart Stents; R me1 ankle; Tonsillectomy; - Immunization history:: Adult Immunizations up to date. - Social history:: Smoking status: Patient/guardian denies using tobacco, but has a distant history of tobacco abuse. ROS: 10:32 Constitutional: Negative for fever, chills, and weight loss, Eyes: Negative for injury, snw pain, redness, and discharge, ENT: Negative for injury, pain, and discharge, Neck: Negative for injury, pain, and swelling, Cardiovascular: Negative for chest pain, palpitations, and edema, Respiratory: Negative for shortness of breath, cough, wheezing, and pleuritic chest pain, : Negative for injury, bleeding, discharge, and swelling, MS/Extremity: Negative for injury and deformity, Skin: Negative for injury, rash, and discoloration, Neuro: Negative for headache, weakness, numbness, tingling, and seizure, Psych: Negative for depression, anxiety, suicide ideation, homicidal ideation, and hallucinations. 10:32 Abdomen/GI: Positive for abdominal pain, constipation, of the left lower quadrant. 10:32 Back: Positive for radiated pain, of the left low back and left mid back. Exam: 10:32 Constitutional: This is a well developed, well nourished patient who is awake, alert, snw and in no acute distress. Head/Face: Normocephalic, atraumatic. Eyes: Pupils equal round and reactive to light, extra-ocular motions intact. Lids and lashes normal. Conjunctiva and sclera are non-icteric and not injected. Cornea within normal limits. Periorbital areas with no swelling, redness, or edema. ENT: Nares patent. No nasal discharge, no septal abnormalities noted. Tympanic membranes are normal and external auditory canals are clear. Oropharynx with no redness, swelling, or masses, exudates, or evidence of obstruction, uvula midline. Mucous membranes moist. Neck: Trachea midline, no thyromegaly or masses palpated, and no cervical lymphadenopathy. Supple, full range of motion without nuchal rigidity, or vertebral point tenderness. No Meningismus. Chest/axilla: Normal chest wall appearance and motion. Nontender with no deformity. No lesions are appreciated. Cardiovascular: Regular rate and rhythm with a normal S1 and S2. No gallops, murmurs, or rubs. Normal PMI, no JVD. No pulse deficits. Respiratory: Lungs have equal breath sounds bilaterally, clear to auscultation and percussion. No rales, rhonchi or wheezes noted. No increased work of breathing, no retractions or nasal flaring. Back: No spinal tenderness. No costovertebral tenderness. Full range of motion. Skin: Warm, dry with normal turgor. Normal color with no rashes, no lesions, and no evidence of cellulitis. MS/ Extremity: Pulses equal, no cyanosis. Neurovascular intact. Full, normal range of motion. Neuro: Awake and alert, GCS 15, oriented to person, place, time, and situation. Cranial nerves II-XII grossly intact. Motor strength 5/5 in all extremities. Sensory grossly intact. Cerebellar exam normal. Normal gait. Psych: Awake, alert, with orientation to person, place and time. Behavior, mood, and affect are within normal limits. 10:32 Abdomen/GI: Inspection: obese Bowel sounds: normal, Palpation: moderate abdominal tenderness, in the left lower quadrant. Vital Signs: 10:30 BP 179 / 89; Pulse 84; Resp 17; Temp 97.6(O); Pulse Ox 98% on R/A; Weight 91.63 kg; me1 Height 5 ft. 6 in. ; 11:00 BP 154 / 72; Pulse 80; Resp 18; Pulse Ox 98% on R/A; db 12:20 BP 151 / 63; Pulse 76; Resp 16; Pulse Ox 97% on R/A; db 13:00 BP 169 / 76; Pulse 76; Resp 16; Pulse Ox 97% on R/A; db 10:30 Body Mass Index 32.60 (91.63 kg, 167.64 cm) ne1 MDM: 10:10 Patient medically screened. snw 12:20 Differential diagnosis: diverticulitis, non-specific abd pain, Pyelonephritis. snw 12:20 Data reviewed: vital signs, nurses notes, lab test result(s), radiologic studies. I snw considered the following discharge prescriptions or medication management in the emergency department Medications were administered in the Emergency Department. See MAR. Counseling: I had a detailed discussion with the patient and/or guardian regarding: the historical points, exam findings, and any diagnostic results supporting the discharge/admit diagnosis, the presence of at least one elevated blood pressure reading (>120/80) during this emergency department visit, lab results, radiology results, the need for outpatient follow up, for definitive care, to return to the emergency department if symptoms worsen or persist or if there are any questions or concerns that arise at home. Response to treatment: the patient's symptoms have mildly improved after treatment. Special discussion: Based on the history and exam findings, there is no indication for further emergent testing or inpatient evaluation. I discussed with the patient/guardian the need to see the sole leveler machine for further evaluation of the symptoms. I discussed with the patient/guardian the need to see the primary care provider for further evaluation of the symptoms. 04/11 10:32 Order name: CBC with Diff; Complete Time: 11:11 snw 04/11 10:32 Order name: CMP; Complete Time: 11:28 snw 04/11 10:32 Order name: Lipase; Complete Time: 11:28 snw 04/11 10:32 Order name: Urinalysis w/ reflexes; Complete Time: 11:23 snw 04/11 10:32 Order name: CT Abd/Pelvis - IV Contrast Only; Complete Time: 12:19 snw 04/11 10:32 Order name: IV Saline Lock; Complete Time: 11:11 snw 04/11 10:32 Order name: Labs collected and sent; Complete Time: 11:11 snw Administered Medications: 10:58 Drug: Famotidine IVP 20 mg Route: IVP; Site: right antecubital; db 13:10 Follow up: Response: No adverse reaction db 10:58 Drug: NS 0.9% IV 1000 ml Route: IV; Rate: 75 ml/hr; Site: right antecubital; db 13:45 Follow up: Response: No adverse reaction; IV Status: Completed infusion db 10:59 Drug: Haloperidol IVP 2.5 mg/50 mL 2.5 mg Route: IVP; Site: right antecubital; db 13:10 Follow up: Response: No adverse reaction db 12:38 Drug: Ciprofloxacin IVPB 400 mg Volume: 200 ml; Route: IVPB; Infused Over: 60 mins; db Site: right antecubital; 13:09 Follow up: Response: No adverse reaction; IV Status: Completed infusion; IV Intake: db 200ml Disposition: 15:02 Co-signature as Attending Physician, Alvaro CONCEPCION was immediately available on-site ms3 in the Emergency Department for consultation in the care of the patient. Disposition Summary: 04/11/23 13:19 Discharge Ordered Location: Home snw Condition: Stable snw Diagnosis - Diverticulosis of large intestine without perforation or abscess without bleeding snw - Lower abdominal pain, unspecified snw Followup: snw - With: Private Physician - When: 2 - 3 days - Reason: Recheck today's complaints, Continuance of care, Re-evaluation by your physician Followup: snw - With: Emergency Department - When: As needed - Reason: Worsening of condition Discharge Instructions: - Discharge Summary Sheet snw - Abdominal Pain, Adult snw - Constipation, Adult snw - Diverticulitis snw - Diverticulosis snw - Diabetes Mellitus and Nutrition, Adult snw - [place] Diet snw Forms: - Medication Reconciliation Form snw - Thank You Letter snw - Antibiotic Education snw - Prescription Opioid Use snw - Patient Portal Instructions snw - Leadership Thank You Letter snw Prescriptions: - Cipro 500 mg Oral Tablet - take 1 tablet by ORAL route every 12 hours for 10 days; 20 tablet; Refills: 0, snw Product Selection Permitted - dicyclomine 20 mg Oral Tablet - take 1 tablet by ORAL route 3 times per day; 21 tablet; Refills: 0, Product snw Selection Permitted Signatures: Dispatcher [employer] EDNatalie Beverly FNP-C ECCLESIASTICAL WORKER-Alvaro Paulino DO DO ms3 Sol Stafford, RN RN db Suri Duckworth RN RN me1 Corrections: (The following items were deleted from the chart) 10:37 10:32 Home Meds: clopidogrel; me1 me1
--- NOTE | 2023-04-11 13:20 | ER ---
Nurse's Notes [facility] Name: Shantal Carrasquillo Age: 68 yrs Sex: Female : 1955 Arrival Date: 04/11/2023 Time: 10:06 Bed 13 Private MD: Diagnosis: Diverticulosis of large intestine without perforation or abscess without bleeding;Lower abdominal pain, unspecified Presentation: 04/11 10:30 Chief complaint: Patient states: LLQ abdominal pain that radiates to L flank. Denies me1 n/v/d. Denies fever/chills. Coronavirus screen: Vaccine status: Patient reports receiving the 2nd dose of the covid vaccine. At this time, the client does not indicate any symptoms associated with coronavirus-19. Ebola Screen: No symptoms or risks identified at this time. Initial Sepsis Screen: Does the patient meet any 2 criteria? No. Patient's initial sepsis screen is negative. Does the patient have a suspected source of infection? No. Patient's initial sepsis screen is negative. Risk Assessment: Do you want to hurt yourself or someone else? Patient reports no desire to harm self or others. Onset of symptoms is unknown. 10:30 Method Of Arrival: Ambulatory me1 10:30 Acuity: PAYAM 3 me1 Historical: - Allergies: 10:32 Demerol; me1 10:32 Latex, Natural Rubber; me1 10:32 Morphine; me1 - Home Meds: 10:32 aspirin Oral [Active]; levothyroxine [Active]; metformin [Active]; lisinopril [Active]; me1 rybelsus [Active]; carvedilol [Active]; furosemide [Active]; atorvastatin [Active]; Toujeo SoloStar U-300 Insulin 300 unit/mL (1.5 mL) subcutaneous Insulin Pen [Active]; Anoro Ellipta 62.5-25 mcg/actuation inhalation Blister, With Inhalation Device [Active]; - PMHx: 10:32 Cataract; Diabetes mellitus; Hypertensive disorder; Hypothyroidism; me1 Hypercholesterolemia; - PSHx: 10:32 Appendectomy; section; Cholecystectomy; Coronary Angioplasty; Heart Stents; R me1 ankle; Tonsillectomy; - Immunization history:: Adult Immunizations up to date. - Social history:: Smoking status: Patient/guardian denies using tobacco, but has a distant history of tobacco abuse. Screenin:00 [facility] ED Fall Risk Assessment (Adult) History of falling in the last 3 months, db including since admission No falls in past 3 months (0 pts) Confusion or Disorientation No (0 pts) Intoxicated or Sedated No (0 pts) Impaired Gait No (0 pts) Mobility Assist Device Used No (0 pt) Altered Elimination No (0 pt) Score/Fall Risk Level 0 - 2 = Low Risk Oriented to surroundings, Maintained a safe environment. Abuse screen: Denies threats or abuse. Denies injuries from another. Nutritional screening: No deficits noted. Tuberculosis screening: No symptoms or risk factors identified. Assessment: 10:55 Reassessment: Patient appears in no apparent distress at this time. Patient and/or db family updated on plan of care and expected duration. Pain level reassessed. Patient is alert, oriented x 3, equal unlabored respirations, skin warm/dry/pink. General: Appears in no apparent distress. comfortable, Behavior is calm, cooperative. Pain: Complains of pain in left low back and left lower quadrant. Neuro: Level of Consciousness is awake, alert, obeys commands, Oriented to person, place, time, situation. Respiratory: Airway is patent Respiratory effort is even, unlabored, Respiratory pattern is regular, symmetrical. GI: Bowel sounds present X 4 quads. Abd is soft X 4 quads. 12:00 Reassessment: Patient appears in no apparent distress at this time. Patient and/or db family updated on plan of care and expected duration. Pain level reassessed. Patient is alert, oriented x 3, equal unlabored respirations, skin warm/dry/pink. 13:12 Reassessment: Patient appears in no apparent distress at this time. No changes from db previously documented assessment. Patient and/or family updated on plan of care and expected duration. Pain level reassessed. Patient is alert, oriented x 3, equal unlabored respirations, skin warm/dry/pink. Vital Signs: 10:30 BP 179 / 89; Pulse 84; Resp 17; Temp 97.6(O); Pulse Ox 98% on R/A; Weight 91.63 kg; me1 Height 5 ft. 6 in. ; 11:00 BP 154 / 72; Pulse 80; Resp 18; Pulse Ox 98% on R/A; db 12:20 BP 151 / 63; Pulse 76; Resp 16; Pulse Ox 97% on R/A; db 13:00 BP 169 / 76; Pulse 76; Resp 16; Pulse Ox 97% on R/A; db 10:30 Body Mass Index 32.60 (91.63 kg, 167.64 cm) me1 Vitals: 11:00 Cardiac Rhythm Assessment Regular. db ED Course: 10:09 Patient arrived in ED. mg5 10:10 [facility] Glover [facility]C [facility] snw 10:10 Alvaro Ramirez DO is Attending Physician. snw 10:21 Sol Stafford, THADDEUS is Primary Nurse. db 10:32 Triage completed. me1 10:38 Arm band placed on Patient placed in waiting room. me1 10:56 Inserted saline lock: 20 gauge in right antecubital area, using aseptic technique. db Blood collected. 11:00 Patient has correct armband on for positive identification. Bed in low position. Call db light in reach. Side rails up X 1. Client placed on continuous cardiac and pulse oximetry monitoring. NIBP monitoring applied. Lights dimmed. Warm blanket given. 11:52 CT Abd/Pelvis - IV Contrast Only In Process Unspecified. EDMS 13:39 Provided Education on: DISCHARGE INSTRUCTIONS. db 13:39 No provider procedures requiring assistance completed. IV discontinued, intact, db bleeding controlled, No redness/swelling at site. Administered Medications: 10:58 Drug: Famotidine IVP 20 mg Route: IVP; Site: right antecubital; db 13:10 Follow up: Response: No adverse reaction db 10:58 Drug: NS 0.9% IV 1000 ml Route: IV; Rate: 75 ml/hr; Site: right antecubital; db 13:45 Follow up: Response: No adverse reaction; IV Status: Completed infusion db 10:59 Drug: Haloperidol IVP 2.5 mg/50 mL 2.5 mg Route: IVP; Site: right antecubital; db 13:10 Follow up: Response: No adverse reaction db 12:38 Drug: Ciprofloxacin IVPB 400 mg Volume: 200 ml; Route: IVPB; Infused Over: 60 mins; db Site: right antecubital; 13:09 Follow up: Response: No adverse reaction; IV Status: Completed infusion; IV Intake: db 200ml Medication: 11:00 VIS not applicable for this client. db Intake: 13:09 IV: 200ml; Total: 200ml. db Outcome: 13:19 Discharge ordered by . sandra 13:39 Discharged to home ambulatory, with family, with friend. db 13:39 Condition: stable 13:39 Discharge instructions given to patient, Instructed on discharge instructions, follow up and referral plans. Prescriptions given X 2. 13:45 Patient left the ED. db Signatures: Dispatcher [employer] EDNatalie Beverly, ROBERT-C RETAIL SALESPERSON-Csnw Sol Stafford, RN RN Suri Acosta, RN RN me1 Janet Espinal mg5 Corrections: (The following items were deleted from the chart) 10:37 10:32 Home Meds: clopidogrel; me1 me1
[2023-04-11 14:06] VITALS: TEMP 97.6
[2023-04-11 14:17] VITALS: O2SAT 97
[2023-04-11 14:18] VITALS: BP 169/76
== END 2023-04-11 13:45 | disposition home or self-care (01) ==
LOC: ER 10:06
DX: K57.30 Diverticulosis of large intestine without perforation or abscess without bleeding (principal); R10.32 Left lower quadrant pain; Z88.5 Allergy status to narcotic agent; Z88.8 Allergy status to other drugs, medicaments and biological substances; Z91.040 Latex allergy status; E11.9 Type 2 diabetes mellitus without complications; I10 Essential (primary) hypertension; E03.9 Hypothyroidism, unspecified; E78.00 Pure hypercholesterolemia, unspecified
CPT/HCPCS: 96365; 96361; 85025; 81001; 36415; 83690; 80053; 74177; 96375; 99284; Q9967; J1630; J0744; J7030

== ENCOUNTER 2025-05-20 06:30 | Day surgery (SDC) | payer OTHER ==
[2025-05-06 15:36] LABS: Absolute Lymphocytes (CBC) 2.0 K/uL (0.7-4.9); Hematocrit 38.5 % (36.0-45.0); Hemoglobin 13.0 g/dL (12.0-15.0); MCH 29.2 pg (27.0-35.0); MCHC 33.9 g/dL (32.0-36.0); MCV 86.1 fL (80-100); MPV 10.7 fL (7.6-11.3); Nucleated RBC Absolute Count 0.0 (0-0); Nucleated Red Blood Cells % 0.2 % (0-0); RBC Red Blood Cell Count 4.47 M/uL (3.86-4.86); White Blood Count 8.50 thou/uL (4.3-10.9)
[2025-05-06 15:47] LABS: PT Prothrombin Time 12.6 SECONDS (10-13.0); PTT, Activated Partial Thromb 40.2 SECONDS (27.2-37.4); Protime INR 1.12
[2025-05-06 15:55] LABS: Anion Gap 10.6 mEq/L (5.0-15.0); BUN Blood Urea Nitrogen 28.0 mg/dL (7-18); Glucose Level 254.0 mg/dL (74-106); Potassium 4.6 mEq/L (3.5-5.1)
--- NOTE | 2025-05-06 16:54 | RAD REPORT ---
EXAMINATION: TWO VIEW CHEST XR CLINICAL INDICATION: Female, 70 years old. Hypertension. Pre op TECHNIQUE: 2 view radiographs of the chest were performed. COMPARISON: 09/20/2023 FINDINGS: The lungs are well inflated and clear. No pneumothorax or sizable effusion. The heart is normal in si ze. Mediastinal contours are unremarkable. IMPRESSION: No acute or significant abnormalities.
[2025-05-20] MEDS ORDERED: NA CHLORIDE 0.9% 500 ML ONE (06:44)
[2025-05-20] MEDS ORDERED: NITROGLYCERIN/D5W 50 MG/250 ML BTL IV ONE (06:47)
[2025-05-20] MEDS ORDERED: HEPARIN 10,000 UNIT/10 ML VIAL IV ONE (06:48)
[2025-05-20] MEDS ORDERED: HEPARIN 5000 UNIT/ML 1 ML VIAL ONE (06:48)
[2025-05-20] MEDS ORDERED: HEPA IV ONE (06:48)
[2025-05-20] MEDS ORDERED: LIDOCAINE 1% 20 ML MDV ONE (06:50)
[2025-05-20] MEDS ORDERED: VERAPAMIL HCL 10 MG/4 ML VIAL IV ONE (06:50)
[2025-05-20] MEDS ORDERED: FENTANYL CITR 100 MCG/2 ML ONE (07:06)
[2025-05-20] MEDS ORDERED: MIDAZOLAM HCL 2 MG/2 ML INJ ONE (07:07)
--- NOTE | 2025-05-20 08:26 | OP ---
Date of Procedure: 04/30/2025 Surgeon: HARI NGUYEN Procedures Performed: 1. Selective coronary angiogram. 2. Left heart catheterization. Indication: Unstable angina. Access: Right radial artery 6-Tristanian, closed with TR band. Complications: None. Bleeding: Less than 50 mL. Total Sedation Time: 45 minutes, used fentanyl, Versed. Description Of Procedure: After risks, benefits, and alternatives were explained, the patient agreed to procedure and signed informed consent. The [facility], prepped and draped in usual sterile fashion. Then, I accessed right radial artery using pedi atric micropuncture kit, ultrasound guidance, fluoroscopy, placed 6-Tristanian Slender sheath and took 5- Tristanian [place] 4 catheter over J-wire into the aortic root, across the aortic valve, measured the LVEDP . Pullback did not record any gradient, then engaged left main, took standard views and then the RCA , took standard views and then removed the catheter and the sheath and placed TR band with good hemos tasis. Findings: 1. Left main is normal. 2. LAD has proximal to mid LAD stent with ostial 90% in-stent restenosis, distal 50% stent restenosis . Distal LAD is normal. Rest of LAD is normal. Normal diagonal branches. 3. Left circumflex; moderate size with luminal irregularities. There is about 50% to 60% OM1 branch disease. 4. RCA; large and dominant, mid 50% stenosis. 5. LVEDP is elevated at 25 mmHg. Conclusion: 1. Severe in-stent re-stenoses of the proximal LAD. This artery was already stented twice in the pas t. 2. Moderate disease elsewhere. Recommendation: One vessel bypass to the LAD, CARL to LAD. SR/MODL Voice ID: [id number] Report ID: [id number]
[2025-05-20 10:35] VITALS: BP 117/52; O2SAT 94
== END 2025-05-20 10:05 | disposition home health service (06) ==
LOC: CCL 06:30
PROVIDERS: ATTEND Internal Medicine
DX: I25.110 Atherosclerotic heart disease of native coronary artery with unstable angina pectoris (principal); T82.855A Stenosis of coronary artery stent, initial encounter; I10 Essential (primary) hypertension; E78.5 Hyperlipidemia, unspecified; E11.9 Type 2 diabetes mellitus without complications; Z87.891 Personal history of nicotine dependence; Z79.82 Long term (current) use of aspirin; Z79.85 Long-term (current) use of injectable non-insulin antidiabetic drugs; Z79.899 Other long term (current) drug therapy; Z88.5 Allergy status to narcotic agent; Z91.040 Latex allergy status
CPT/HCPCS: 93005; 85025; 80048; 36415; 85610; 82947; 85730; 71046; 93458; 76937; C1893; Q9966; J1644 ×2; J2003; J2250; J3010; J7040; 99152